=== PATIENT | female | born 2000 | race Hispanic/Latino ===

== ENCOUNTER 2023-11-30 05:15 | Day surgery (SDC) | payer OTHER ==
[2023-11-30] MEDS ORDERED: hydrALAZINE 20 MG/ML VIAL SLOW IVP PRN (06:03)
[2023-11-30 06:06] VITALS: BMI 44.6
[2023-11-30] MEDS: Mag-Al 1200 mg/1200 mg/30 ML UDCUP PO SCH (07:49)
== END 2023-11-30 10:35 | disposition home or self-care (01) ==
LOC: CSHLD/OP 05:15
PROVIDERS: ATTEND Internal Medicine
DX: O99.891 Other specified diseases and conditions complicating pregnancy (principal); R35.0 Frequency of micturition; O09.32 Supervision of pregnancy with insufficient antenatal care, second trimester; M54.9 Dorsalgia, unspecified; R10.13 Epigastric pain; O99.612 Diseases of the digestive system complicating pregnancy, second trimester; K21.9 Gastro-esophageal reflux disease without esophagitis; O23.42 Unspecified infection of urinary tract in pregnancy, second trimester; O00.01 Abdominal pregnancy with intrauterine pregnancy; Z3A.23 23 weeks gestation of pregnancy
CPT/HCPCS: 87480; 87510; 87660

== ENCOUNTER 2023-12-20 01:40 | Day surgery (SDC) | payer SELFPAY ==
[2023-12-20 01:56] VITALS: BMI 43.4
[2023-12-20] MEDS ORDERED: hydrALAZINE 20 MG/ML VIAL SLOW IVP PRN (03:26)
[2023-12-20 21:43] LABS: Chlamydia by PCR, Vaginal Swab Not Detected (NotDetected); GC by PCR, Vaginal Swab Not Detected (NotDetected)
== END 2023-12-20 05:58 | disposition home or self-care (01) ==
LOC: CSHLD/OP 01:40
PROVIDERS: ATTEND Obstetrics & Gynecology
DX: O46.92 Antepartum hemorrhage, unspecified, second trimester (principal); Z3A.27 27 weeks gestation of pregnancy; O23.42 Unspecified infection of urinary tract in pregnancy, second trimester; N39.0 Urinary tract infection, site not specified
CPT/HCPCS: 87480; 87491; 87510; 87591; 87660; 99285

== ENCOUNTER 2024-03-24 15:41 | Day surgery (SDC) | payer OTHER ==
[2024-03-24 16:23] VITALS: BMI 46.6
== END 2024-03-24 19:25 | disposition home or self-care (01) ==
LOC: CSHLD/OP 15:41
PROVIDERS: ATTEND Family Medicine
DX: O47.1 False labor at or after 37 completed weeks of gestation (principal); Z79.899 Other long term (current) drug therapy; Z79.82 Long term (current) use of aspirin; Z3A.38 38 weeks gestation of pregnancy
CPT/HCPCS: 99283

== ENCOUNTER 2024-03-25 11:44 | Inpatient (IN) | payer MEDICAID, OTHER ==
[2024-03-25] MEDS ORDERED: hydrALAZINE 20 MG/ML VIAL SLOW IVP PRN ×2 (13:15→14:24)
[2024-03-25] MEDS: Lactated Ringer's 1,000 ML IV SCH (13:37)
[2024-03-25 13:42] VITALS: BMI 46.6
[2024-03-25] MEDS: Morphine 4 MG/ML VIAL SLOW IVP PRN (13:47)
[2024-03-25] MEDS ORDERED: fentaNYL 50 mcg/mL 1 mL Vial SLOW IVP PRN (14:24)
[2024-03-25] MEDS ORDERED: Ondansetron PF 4 MG/2 ML Vial IVP PRN (14:24)
[2024-03-25] MEDS ORDERED: Acetaminophen 500 MG TAB PO PRN (14:24)
[2024-03-25] MEDS ORDERED: HYDROcodone/Acetaminophen 5/325 mg Tablet PO PRN ×2 (14:24)
[2024-03-25] MEDS ORDERED: Misoprostol 200 MCG TAB PR PRN (14:24)
[2024-03-25] MEDS ORDERED: Promethazine HCl 25 MG/ML VIAL IM PRN (14:24)
[2024-03-25] MEDS ORDERED: Carboprost 250 MCG/ML AMP IM PRN (14:24)
[2024-03-25] MEDS ORDERED: Ibuprofen 800 MG TAB PO PRN (14:24)
[2024-03-25] MEDS ORDERED: Lidocaine 1% (PF) 30 ML VIAL SC PRN (14:24)
[2024-03-25] MEDS ORDERED: Tranexamic Acid 1,000 MG/10 ML VIAL IVP PRN (14:24)
[2024-03-25] MEDS ORDERED: Diphenoxylate HCl/Atropine Tablet PO PRN (14:24)
[2024-03-25] MEDS ORDERED: Methylergonovine 0.2 MG/ML VIAL IM PRN (14:24)
[2024-03-25] MEDS ORDERED: Lactated Ringer's 1,000 ML IV SCH (14:30)
[2024-03-25] MEDS ORDERED: Oxytocin 30 units/NS 500 ML 500 ML IV SCH ×2 (14:30)
[2024-03-25 15:11] LABS: Hematocrit 36.3 % (34.9-44.5); Hemoglobin 11.7 g/dL (12.0-15.5); Mean Corpuscular HGB CONC 32.2 g/dL (32.0-36.0); Mean Corpuscular Volume 90.1 fL (81.6-98.3); Mean Platelet Volume 13.8 fL (7.4-10.4); Platelet Count 124 10x3/uL (150-450); RBC Distribution Width 14.4 % (11.5-14.5); Red Blood Cell (RBC) Count 4.03 10x6/uL (3.90-5.03); White Blood Cell (WBC) Count 12.87 10x3/uL (3.5-10.5)
[2024-03-25 16:01] LABS: Syphilis Antibody Nonreactive (Nonreactive); Syphilis Antibody Index 0.04 S/CO (<1.00 Non-Reactive)
[2024-03-25 16:03] LABS: HIV (1/2) Antibody/Antigen Non-Reactive (NonReactive); Hep B Surf Ag - L&D Non-Reactive S/CO (NonReactive)
[2024-03-25 18:41] LABS: Amphetamine Not Detected (NotDetected); Barbiturates Screen Not Detected (NotDetected); Benzodiazepine Screen Not Detected (NotDetected); Cocaine Metabolite Screen Not Detected (NotDetected); Methadone Not Detected (NotDetected); Methamphetamine Not Detected (NotDetected); Opiate Screen Detected (NotDetected); Oxycodone Screen Not Detected (NotDetected); Phencyclidine (PCP) Not Detected (NotDetected); THC/Cannabinoid Screen Not Detected (NotDetected); Tricyclic Screen Not Detected (NotDetected)
[2024-03-25] MEDS: fentaNYL/Ropivacaine Epidural 100 ML ONE (23:59)
[2024-03-26] MEDS ORDERED: Lactated Ringer's 500 ML IV PRN (01:56)
[2024-03-26] MEDS ORDERED: diphenhydrAMINE 50 MG/ML VIAL IVP PRN ×2 (01:56→06:18)
[2024-03-26] MEDS ORDERED: Moisturizing Cream (Eucerin) 113 GM JAR TOP PRN ×2 (01:56→06:18)
[2024-03-26] MEDS ORDERED: Acetaminophen 325 MG TAB PO PRN (01:56)
[2024-03-26] MEDS ORDERED: Ondansetron PF 4 MG/2 ML Vial IVP PRN ×4 (01:56→10:13)
[2024-03-26] MEDS ORDERED: Promethazine HCl 25 MG/ML VIAL IM PRN ×3 (01:56→10:13)
[2024-03-26] MEDS ORDERED: Naloxone HCl 0.4 mg/ml Vial IVP PRN ×4 (01:56→06:18)
[2024-03-26] MEDS ORDERED: ePHEDrine Sulfate 50 MG/10 ML VIAL SLOW IVP PRN (01:56)
[2024-03-26] MEDS ORDERED: Communication Order-Pharmacy FS SCH ×2 (02:00→06:30)
[2024-03-26] MEDS ORDERED: fentaNYL 2 mcg/Ropivacaine 0.2% Epidural 100 ML CADD EPIDURAL SCH (02:00)
[2024-03-26] MEDS ORDERED: Morphine 4 MG/ML VIAL SLOW IVP PRN (06:18)
[2024-03-26] MEDS ORDERED: fentaNYL 50 mcg/mL 1 mL Vial SLOW IVP PRN (06:18)
[2024-03-26] MEDS ORDERED: Ketorolac Tromethamine 30 MG (1 mL) VIAL IVP PRN (06:18)
[2024-03-26] MEDS ORDERED: Naloxone HCl 0.4 mg/ml Vial IV PRN (06:18)
[2024-03-26] MEDS: Diphenoxylate HCl/Atropine Tablet PO PRN (07:35)
[2024-03-26] MEDS: Ketorolac Tromethamine 30 MG (1 mL) VIAL IVP SCH ×3 (07:36→20:06)
[2024-03-26] MEDS: Meperidine HCl/PF 25 MG (1 mL) VIAL SLOW IVP PRN (08:58)
[2024-03-26] MEDS ORDERED: Lanolin Ointment 7 GM TUBE TOP PRN (10:13)
[2024-03-26] MEDS ORDERED: Bisacodyl 10 MG SUPP PR PRN (10:13)
[2024-03-26] MEDS ORDERED: Oxytocin 30 units/NS 500 ML 500 ML IV SCH (10:13)
[2024-03-26] MEDS ORDERED: hydrALAZINE 20 MG/ML VIAL SLOW IVP PRN (10:13)
[2024-03-26] MEDS: Morphine PF 10 MG/10 ML VIAL ONE (11:12)
[2024-03-26] MEDS: Ampicillin 2 GM in Sodium Chloride 0.9% 100 ML IVPB SCH (11:12)
[2024-03-26] MEDS: Dexamethasone 10 MG/ML VIAL ONE (11:12)
[2024-03-26] MEDS: fentaNYL/Ropivacaine Epidural 100 ML ONE (11:12)
[2024-03-26] MEDS: Ondansetron PF 4 MG/2 ML Vial ONE (11:13)
[2024-03-26] MEDS: Midazolam HCl 2 mg/2 ml Vial ONE (11:13)
[2024-03-26] MEDS: Tranexamic Acid 1,000 MG/10 ML VIAL ONE (11:13)
[2024-03-26] MEDS: Boostrix 0.5 ML (Tdap) VIAL (>/=7 yrs of age) IM ONE (11:13)
[2024-03-26] MEDS: Oxytocin 10 UNITS/ML VIAL ONE (11:13)
[2024-03-26] MEDS: Methylergonovine 0.2 MG/ML VIAL ONE (11:13)
[2024-03-26] MEDS: Prenatal Vitamin 1 TAB PO SCH (11:14)
[2024-03-26] MEDS: Ferrous Sulfate 325 MG TAB PO SCH ×2 (11:14→19:50)
[2024-03-26] MEDS: Docusate 100 MG CAP PO SCH ×2 (11:14→20:07)
[2024-03-26] MEDS: diphenhydrAMINE 25 MG CAP PO PRN (14:24)
[2024-03-26] MEDS ORDERED: Meperidine HCl/PF 25 MG (1 mL) VIAL IM PRN (18:30)
[2024-03-27 05:43] LABS: Hematocrit 28.7 % (34.9-44.5); Hemoglobin 9.6 g/dL (12.0-15.5); Mean Corpuscular HGB CONC 33.4 g/dL (32.0-36.0); Mean Corpuscular Hemoglobin 30.3 pg (27.0-33.0); Mean Corpuscular Volume 90.5 fL (81.6-98.3); Mean Platelet Volume 13.6 fL (7.4-10.4); RBC Distribution Width 14.8 % (11.5-14.5); Red Blood Cell (RBC) Count 3.17 10x6/uL (3.90-5.03); White Blood Cell (WBC) Count 19.71 10x3/uL (3.5-10.5)
[2024-03-27 05:46] LABS: Platelet Count 106 10x3/uL (150-450)
[2024-03-27] MEDS: Prenatal Vitamin 1 TAB PO SCH (09:00)
[2024-03-27] MEDS: HYDROcodone/Acetaminophen 5/325 mg Tablet PO PRN (10:00)
[2024-03-27] MEDS: Ibuprofen 800 MG TAB PO SCH (14:06)
[2024-03-27] MEDS: Simethicone Chewable 80 MG TAB PO PRN (18:48)
[2024-03-28] MEDS: HYDROcodone/Acetaminophen 5/325 mg Tablet PO PRN (10:17)
[2024-03-29] MEDS: Benzocaine/Menthol 1 LOZ LOZ PO PRN (09:42)
[2024-03-29 19:01] VITALS: BP 113/58; TEMP 98
== END 2024-03-29 20:10 | disposition home or self-care (01) | DRG 786 ==
LOC: CSHLD/OP 11:44 → CSHLD 14:47 → CSHPED 03-26 10:01
PROVIDERS: ADMIT Family Medicine; ATTEND Family Medicine
PROC: 10907ZC Drainage of Amniotic Fluid, Therapeutic from Products of Conception, Via Natural or Artificial Opening (ICD-10-PCS; 2024-03-25)
PROC: 10D00Z1 Extraction of Products of Conception, Low, Open Approach (ICD-10-PCS; principal; 2024-03-26)
DX: O99.214 Obesity complicating childbirth (principal); O41.1230 Chorioamnionitis, third trimester, not applicable or unspecified; O75.2 Pyrexia during labor, not elsewhere classified; O76 Abnormality in fetal heart rate and rhythm complicating labor and delivery; Z3A.40 40 weeks gestation of pregnancy; Z37.0 Single live birth; O62.1 Secondary uterine inertia
CPT/HCPCS: 36415; 51702; 80306; 85027; 86780; 86850; 86900; 86901; 87340; 87389; 88307; 99285; C1889; J1100; J1885; J2175; J2210; J2250; J2270; J2274; J2405; J2590

== ENCOUNTER 2024-10-29 17:51 | Emergency (ER) | payer MEDICAID | END 2024-10-29 19:30 | disposition home or self-care (01) | LOC: CSHERS 17:51 | DX: O03.4 Incomplete spontaneous abortion without complication (principal); F17.210 Nicotine dependence, cigarettes, uncomplicated; F17.290 Nicotine dependence, other tobacco product, uncomplicated | CPT/HCPCS: 36415; 84702; 99284 ==